=== PATIENT | female | born 1975 | race Two or more races ===

== ENCOUNTER 2017-01-14 07:47 | Emergency (ER) | payer OTHER ==
[2017-01-14 07:59] VITALS: TEMP 98; BMI 28.0
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
[2017-01-14 10:11] VITALS: BP 115/80; PULSE 86
== END 2017-01-14 10:12 | disposition home or self-care (01) ==
LOC: JER 07:47
DX: T76.21XA Adult sexual abuse, suspected, initial encounter (principal); Y07.03 Male partner, perpetrator of maltreatment and neglect
CPT/HCPCS: 99281-25

== ENCOUNTER 2017-05-07 23:44 | Emergency (ER) | payer OTHER ==
[2017-05-07 23:59] VITALS: BMI 26.6
[2017-05-08] MEDS ORDERED: ALBUTEROL SO4 2.5/IPRATROPIUM 0.5 INH SOL 3 ML VIAL.NEB. NEB ONE ×2 (01:02→01:06)
[2017-05-08] MEDS ORDERED: predniSONE 20 MG TABLET (UD) PO ONE ×2 (01:13→01:20)
--- NOTE | 2017-05-08 01:13 | PDOC ---
History of Present Illness - General Chief Complaint: Wheezing Stated Complaint: DIFF. BREATHING Time Seen by Provider: 05/07/17 23:51 History Source: Patient Exam Limitations: No Limitations - History of Present Illness Initial Comments: This is a 41 yo female with h/o asthma who presents h/o shortness of breath for the past 5 days, worsened over the past two days. She additionally has left> right mid-back pain as well as chest tightness which is typical of her asthma exacerbations. She states that her lung has collapsed in the past and she the back pain feels similar to that. She was seen by her asthma doctor yesterday who did a chest x-ray and ultimately prescribed her Augmentin and told her to continue a prednisone course she has been on for the past 5 days (60mg x3 days, then 50mg for the past two days). She additionally notes recent cough with yellow phlegm, fever, chills, sweats, and palpitations. She has been intubated twice for her asthma and states that her last time was in 2008. She has not been admitted to the hospital for asthma since that time. Her triggers are respiratory infections, seasonal allergies, and temperature changes ("changing of the seasons"). The last time she was on steroids was November of this year. 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 Past History - Past Medical History Allergies/Adverse Reactions: Allergies Allergy/AdvReac Type Severity Reaction Status Date / Time metaproterenol sulfate Allergy Verified 01/14/17 08:00 [From Alupent] Home Medications: Ambulatory Orders Albuterol 0.083% Nebulizer Vicki [Ventolin 0.083% Nebulizer Soln -] 1 amp IH Q4HWA 05/08/17 Albuterol 2.5/Ipratropium 0.5 [Duoneb -] 1 neb IH QID 05/08/17 Amox-Tr/K Cl [Augmentin 875-125mg Tablet -] 1 tab PO BID 05/08/17 Prednisone [Prednisone 50 MG TABLETS] 50 mg PO DAILY 05/08/17 Asthma: Yes - Psycho/Social/Smoking Cessation Hx Anxiety: Yes Suicidal Ideation: No Smoking History: Never smoked Hx Alcohol Use: No Drug/Substance Use Hx: No Substance Use Type: Alcohol *Physical Exam - Vital Signs Last Vital Signs Temp Pulse Resp BP Pulse Ox 127/92 96 05/07/17 23:45 05/07/17 23:45 - Physical Exam General Appearance: Yes: Nourished, Appropriately Dressed, Other (appears comfortable, speaking in full sentences, answering questions appropriately). No : Apparent Distress HEENT: positive: EOMI, Normal Voice, Pharynx Normal, Hearing Grossly Normal. negative: Scleral Icterus (R), Scleral Icterus (L), Nasal Congestion Neck: positive: Trachea midline, Supple. negative: Tender, Rigid Respiratory/Chest: positive: Decreased Breath Sounds (right worse than left). negative: Chest Tender, Respiratory Distress, Crackles, Rhonchi, Stridor, Wheezing Cardiovascular: positive: Regular Rhythm, Regular Rate. negative: Edema, JVD, Murmur Gastrointestinal/Abdominal: positive: Normal Bowel Sounds, Soft. negative: Tender, Organomegaly, Pulsatile Mass, Guarding Musculoskeletal: positive: Normal Inspection. negative: Decreased Range of Motion, Vertebral Tenderness Extremity: positive: Normal Capillary Refill, Normal Inspection, Normal Range of Motion. negative: Tender, Cyanosis Integumentary: positive: Normal Color, Dry, Warm. negative: Erythema, Rash, Bruising Neurologic: positive: night worker II-XII NML intact (grossly), Fully Oriented, Alert, Normal Mood/Affect, Normal Response, Motor Strength 5/5 Heart Score/ECG Review - History History: Slightly suspicious - Electrocardiogram EKG: Normal - Age Age: </= 44 #1 ECG reviewed & interpreted by me at: 01:20 NSR, rate of 79, normal axis and intervals, otherwise normal EKG ED Treatment Course - LABORATORY CBC & Chemistry Diagram: 05/08/17 01:05 05/08/17 01:05 - RADIOLOGY Radiology Studies Ordered: Category Date Time Status CHEST PA & LAT [RAD] Stat Radiology 05/08/17 01:02 Ordered CXR with flattened diaphragms but otherwise no e/o infectious processes or other cardiopulmonary processes. Medical Decision Making - Medical Decision Making 41 yof with h/o asthma p/w SOB in the setting of recently diagnosed "upper and lower respiratory infection". Has been on prednisone 60 mg x3 days then 50 mg x2 days with last dose in the morning 05/07. On exam she is speaking full sentences, comfortable, no respiratory distress, R> L decreased air movement. DDX: asthma exacerbation +- PNA or bronchitis, pneumothorax, ACS, unlikely PE as she meets no PERC/Wells criteria. Ordered is DuoNeb, 50 mg prednisone PO, CXR, CBCD, CMP, serum preg. Blood and urine not concerning; EKG unremarkable and CXR without e/o infectious process. Pt's symptoms improve markedly with DuoNeb and prednisone. She is appropriate for DC home and close OP management. Return precautions are discussed. *DC/Admit/Observation/Transfer Diagnosis at time of Disposition: Asthma Qualifiers: Asthma severity: unspecified severity Asthma complication type: with acute exacerbation Qualified Code(s): J45.901 - Unspecified asthma with (acute) exacerbation - Discharge Dispostion Disposition: HOME Condition at time of disposition: Stable Admit: No - Referrals Referrals: Broderick Pedraza [Primary Care Provider] - - Patient Instructions Printed Discharge Instructions: DI for Asthma -- Adult Additional Instructions: You were seen in the ED today for asthma exacerbation. We did blood and urine tests and the results were not concerning. We also did an electrocardiogram and a chest x-ray, which were not concerning. Please follow up with your asthma doctor and your clean room assembler, as well as your PCP, as needed. You can return to the ED for any new or worsening symptoms like fever, severe shortness of breath or wheezing, worsened chest pain, or other symptoms.
[2017-05-08 01:20] LABS: BASOPHIL 0.6 % (0-2.0); EOSINOPHIL 0.1 % (0-4.5); MCH 31.2 pg (25.7-33.7); MCHC 33.5 g/dl (32.0-36.0); MEAN CELL VOLUME 92.9 fl (80-96); MEAN PLT VOLUME 8.7 fl (7.5-11.1); NEUTROPHILS 65.9 % (42.8-82.8); PLATELET COUNT 282 K/MM3 (134-434); RDW 13.8 % (11.6-15.6); WHITE BLOOD COUNT 13.8 K/mm3 (4.0-10.0)
[2017-05-08] MEDS ORDERED: predniSONE 10 MG TABLET (UD) ONE (01:30)
[2017-05-08] MEDS ORDERED: predniSONE 20 MG TABLET (UD) ONE (01:30)
--- NOTE | 2017-05-08 01:40 | PDOC ---
Attending Attestation - Resident Resident Name: BeatrizNell - ED Attending Attestation I have performed the following: I have examined & evaluated the patient, The case was reviewed & discussed with the resident, I agree w/resident's findings & plan, Exceptions are as noted - HPI HPI: 05/08/17 01:35 41-year-old female with poorly controlled asthma presents the ER with 4-5 days of worsening shortness of breath, associated with fever, cough productive of purulent sputum. Patient has been seen and evaluated by her juvenile justice specialist who initiated a course of oral prednisone and Augmentin for suspected sinusitis. Patient has been self administering albuterol therapy without significant relief. - Physicial Exam PE: 05/08/17 01:36 In the ER, patient is awake and alert, well-appearing, in no significant distress. heent-ok; cta with decreased air entry at the right base; rrr abd-sft, nt, nd, bs-nl extr-no edema - Medical Decision Making 05/08/17 01:39 41-year-old female with poorly controlled asthma presents with signs and symptoms of mild acute asthma exacerbation likely precipitated by an acute upper respiratory infection. We'll administer Combivent therapy, we'll administer prednisone. We'll obtain chest x-ray to rule out pneumothorax versus pneumonia. Will reassess. Likely discharge.
[2017-05-08 01:42] LABS: ALBUMIN 4.1 g/dl (3.4-5.0); ANION GAP 13 (8-16); BILIRUBIN,TOTAL 0.3 mg/dL (0.2-1.0); CALCIUM 8.9 mg/dL (8.5-10.1); CO2 22 mmol/L (21-32); CREATININE 0.7 mg/dL (0.55-1.02); GLUCOSE,RANDOM 94 mg/dL (74-106); SGOT/AST 8 U/L (15-37); SGPT/ALT 23 U/L (12-78)
[2017-05-08 01:43] LABS: ALK PHOS 49 U/L (45-117)
[2017-05-08 02:46] VITALS: BP 137/79; PULSE 83; TEMP 98.1
--- NOTE | 2017-05-08 13:12 | EKG ---
Test Reason : Blood Pressure : / mmHG Vent. Rate : 079 BPM Atrial Rate : 079 BPM P-R Int : 174 ms QRS Dur : 106 ms QT Int : 394 ms P-R-T Axes : 022 054 039 degrees QTc Int : 451 ms NORMAL SINUS RHYTHM NORMAL ECG NO PREVIOUS ECGS AVAILABLE Confirmed by HERNANDEZ CORADO MD ([id number]) on 05/08/2017 1:11:46 PM Referred By: Confirmed By:HERNANDEZ CORADO MD
== END 2017-05-08 02:46 | disposition home or self-care (01) ==
LOC: JER 23:44
PROC: 3E0F7GC Introduction of Other Therapeutic Substance into Respiratory Tract, Via Natural or Artificial Opening (ICD-10-PCS; principal; 2017-05-07)
DX: J45.901 Unspecified asthma with (acute) exacerbation (principal)
CPT/HCPCS: 36415; 71020-TC; 80053; 84703; 85025; 93005; 93010; 99282-25